=== PATIENT | female | born 1945 | race American Indian/Alaskan Native ===

== ENCOUNTER 2017-07-28 12:07 | Outpatient (CLI) | payer MEDICARE ==
--- NOTE | 2017-07-28 14:07 | XRay Report ---
RIGHT KNEE, 3 views: History: Acute right knee pain. The bony architecture is intact without evidence of fracture or dislocation. No significant soft tissue abnormality is seen. IMPRESSION: Right knee within normal limits.
== END 2017-07-28 12:08 | disposition home or self-care (01) ==
LOC: SPVIMAG 12:07
PROVIDERS: ATTEND Internal Medicine
DX: M25.561 Pain in right knee (principal)

== ENCOUNTER 2020-12-24 11:14 | Outpatient (CLI) | payer MEDICARE ==
--- NOTE | 2020-12-24 14:17 | Mammography Report ---
DEXA BONE DENSITY SCAN INDICATION: ASYMPTOMATIC MENOPAUSAL STATE Z78.0. COMPARISON: None available. LUMBAR SPINE (L1-L4): Bone mineral density (BMD) is 1.008 g/cm2. T-score is -1.3 (standard deviations of Young Adult mean). Z-score is 1.2 (standard deviations of Age Matched mean). LEFT FEMORAL NECK: Bone mineral density (BMD) is 0.881 g/cm2. T-score is -0.5 (standard deviations of Young Adult mean). Z-score is 1.0 (standard deviations of Age Matched mean). IMPRESSION: 1. WHO Classification: Osteopenia. Fracture Risk: Increased. Signer Name: Rene Whyte MD Signed: 12/24/2020 2:12 PM Workstation Name: [email or web address]
== END 2020-12-24 11:15 | disposition home or self-care (01) ==
LOC: SPVWC 11:14
PROVIDERS: ATTEND Internal Medicine
DX: Z13.820 Encounter for screening for osteoporosis (principal); M85.88 Other specified disorders of bone density and structure, other site; Z78.0 Asymptomatic menopausal state
CPT/HCPCS: 77080